=== PATIENT | female | born 1965 | race Caucasian/White ===

== ENCOUNTER → 2016-12-05 | Outpatient (CLI) | payer OTHER ==
--- NOTE | 2016-12-05 15:01 | RADIOLOGY REPORT (SQ) ---
EXAM DESCRIPTION: VENOUS UNILATERAL LOWER COMPLETED DATE/TIME: 12/05/2016 2:43 pm REASON FOR STUDY: LLE PAIN, SWELLING R60.9 EDEMA, UNSPECIFIED R52 PAIN, UNSPECIFIED COMPARISON: None. TECHNIQUE: Dynamic and static boothe scale and color images acquired of the left leg venous system. Se lected spectral images acquired with additional compression and augmentation maneuvers. The contralat eral common femoral vein and saphenofemoral junction were also imaged. Images stored on PACS. LIMITATIONS: None. FINDINGS: LEFT COMMON FEMORAL: Normal phasicity, compression and augmentation. No visualized echogenic material on g ray scale. No defects on color images. FEMORAL: Normal compression and augmentation. No visualized echogenic material on boothe scale. No defe cts on color images. POPLITEAL: Normal compression, augmentation. No visualized echogenic material on boothe scale. No defec ts on color images. CALF VESSELS: Normal compression, augmentation. No visualized echogenic material on boothe scale. No de fects on color images. GSV and SSV: Normal compression, augmentation. No visualized echogenic material on boothe scale. No def ects on color images. ANY DEEP VENOUS INSUFFICIENCY: There is reflux in the left greater saphenous vein on Valsalva. ANY EVIDENCE OF POPLITEAL CYST: No. OTHER: No other significant finding. RIGHT COMMON FEMORAL VEIN AND SAPHENOFEMORAL JUNCTION: Normal phasicity, compression and augmentation. No visualized echogenic material on boothe scale. No de fects on color images. IMPRESSION: NO EVIDENCE OF DVT OR SVT IN THE LEFT LEG. TECHNICAL DOCUMENTATION: JOB ID: [id number] [employer]- All Rights Reserved
== END ==
LOC: SP 13:59
PROVIDERS: ATTEND Internal Medicine Medical Oncology
DX: R60.9 Edema, unspecified (principal); R52 Pain, unspecified
CPT/HCPCS: 93971

== ENCOUNTER → 2017-05-15 | Outpatient (CLI) | payer OTHER ==
--- NOTE | 2017-05-15 13:52 | RADIOLOGY REPORT (SQ) ---
EXAM DESCRIPTION: VENOUS UNILATERAL LOWER COMPLETED DATE/TIME: 05/15/2017 1:43 pm REASON FOR STUDY: LLE M79.605 M79.605 PAIN IN LEFT LEG COMPARISON: None. TECHNIQUE: Dynamic and static boothe scale and color images acquired of the left leg venous system. Se lected spectral images acquired with additional compression and augmentation maneuvers. The contralat eral common femoral vein and saphenofemoral junction were also imaged. Images stored on PACS. LIMITATIONS: None. FINDINGS: COMMON FEMORAL: Normal phasicity, compression and augmentation. No visualized echogenic ma terial on boothe scale. No defects on color images. FEMORAL: Normal compression and augmentation. No visualized echogenic material on boothe scale. No defe cts on color images. POPLITEAL: Normal compression, augmentation. No visualized echogenic material on boothe scale. No defec ts on color images. CALF VESSELS: Normal compression, augmentation. No visualized echogenic material on boothe scale. No de fects on color images. GSV and SSV: Normal compression, augmentation. No visualized echogenic material on boothe scale. No def ects on color images. ANY DEEP VENOUS INSUFFICIENCY: Not evaluated. ANY EVIDENCE OF POPLITEAL CYST: No. OTHER: Thrombosed varicose vein in the mid calf. CONTRALATERAL COMMON FEMORAL VEIN AND SAPHENOFEMORAL JUNCTION: Normal phasicity, compression and augmentation. No visualized echogenic material on boothe scale. No de fects on color images. IMPRESSION: NO EVIDENCE DVT IN THE LEFT LEG. TECHNICAL DOCUMENTATION: JOB ID: [id number] [employer]- All Rights Reserved
== END ==
LOC: SP 12:54
PROVIDERS: ATTEND Internal Medicine Medical Oncology
DX: M79.605 Pain in left leg (principal); D69.59 Other secondary thrombocytopenia; Z86.718 Personal history of other venous thrombosis and embolism
CPT/HCPCS: 93971

== ENCOUNTER → 2017-11-29 | Outpatient (CLI) | payer OTHER ==
--- NOTE | 2017-11-29 15:18 | RADIOLOGY REPORT (SQ) ---
EXAM DESCRIPTION: VENOUS UNILATERAL LOWER COMPLETED DATE/TIME: 11/29/2017 1:58 pm REASON FOR STUDY: LLE PAIN R52 PAIN, UNSPECIFIED COMPARISON: 05/15/2017, 12/05/2016 TECHNIQUE: Dynamic and static boothe scale and color images acquired of the left leg venous system. Se lected spectral images acquired with additional compression and augmentation maneuvers. The contralat eral common femoral vein and saphenofemoral junction were also imaged. Images stored on PACS. LIMITATIONS: None. FINDINGS: LEFT COMMON FEMORAL: Normal phasicity, compression and augmentation. No visualized echogenic material on g ray scale. No defects on color images. FEMORAL: Normal compression and augmentation. No visualized echogenic material on boothe scale. No defe cts on color images. POPLITEAL: Normal compression, augmentation. No visualized echogenic material on boothe scale. No defec ts on color images. CALF VESSELS: Normal compression, augmentation. No visualized echogenic material on boothe scale. No de fects on color images. GSV and SSV: Normal compression, augmentation. No visualized echogenic material on boothe scale. No def ects on color images. ANY DEEP VENOUS INSUFFICIENCY: Not evaluated. ANY EVIDENCE OF POPLITEAL CYST: No. OTHER: No other significant finding. RIGHT COMMON FEMORAL VEIN AND SAPHENOFEMORAL JUNCTION: Normal phasicity, compression and augmentation. No visualized echogenic material on boothe scale. No de fects on color images. IMPRESSION: NO EVIDENCE OF DVT OR SVT IN THE LEFT LEG. TECHNICAL DOCUMENTATION: JOB ID: [id number] [employer]- All Rights Reserved Reading location - IP/workstation name: [email or web address]
== END ==
LOC: SP 12:29
PROVIDERS: ATTEND Internal Medicine Medical Oncology
DX: D68.59 Other primary thrombophilia (principal); R52 Pain, unspecified
CPT/HCPCS: 93971